=== PATIENT | female | born 1960 | race Caucasian/White ===

== ENCOUNTER 2024-06-02 02:02 | Outpatient (RCR) | payer MEDICARE, SELFPAY ==
[2024-06-02] VITALS (9 sets, daily range): BP systolic 121–147; BP diastolic 64–85; PULSE 52–77; RESP 16–19; TEMP 35.7–36.5; O2SAT 96–100
[2024-06-02] MEDS: Acetaminophen 325 MG TAB 650 MG PO (09:13)
[2024-06-02] MEDS: Normal Saline Flush 10 ML SYR IVP ×2 (09:14→14:06)
[2024-06-02] MEDS: diphenhydrAMINE 25 MG CAP PO (09:16)
[2024-06-02] MEDS: methylPREDNISolone SUCC 125 MG VIAL 100 MG IVP (09:16)
[2024-06-02] MEDS: riTUXimab-PVVR 1,000 MG in Normal Saline 150 ML 62.5 MG IVPB (09:39)
== END 2024-06-08 23:59 | disposition home or self-care (01) ==
LOC: INF 02:02
PROVIDERS: Visit Provider Family Medicine
DX: M05.9 Rheumatoid arthritis with rheumatoid factor, unspecified (principal)
CPT/HCPCS: 96365; 96366; 96374; 96375; J2919; Q5119

== ENCOUNTER 2024-06-16 02:49 | Outpatient (RCR) | payer MEDICARE, SELFPAY ==
[2024-06-09 00:31] VITALS: BP 121/64; PULSE 77; RESP 18; TEMP 36.5
[2024-06-16] VITALS (8 sets, daily range): BP systolic 134–168; BP diastolic 73–79; PULSE 57–77; RESP 16–18; TEMP 36.6–37.2; O2SAT 96–98
[2024-06-16] MEDS: Normal Saline Flush 10 ML SYR IVP ×2 (08:59→11:21)
[2024-06-16] MEDS: methylPREDNISolone SUCC 125 MG VIAL 100 MG IVP (08:59)
[2024-06-16] MEDS: diphenhydrAMINE 25 MG CAP PO (08:59)
[2024-06-16] MEDS: Acetaminophen 325 MG TAB 650 MG PO (08:59)
[2024-06-16] MEDS: riTUXimab-PVVR 1,000 MG in Normal Saline 150 ML 62.5 MG IVPB (09:23)
== END 2024-07-09 23:59 | disposition home or self-care (01) ==
LOC: INF 02:49
PROVIDERS: Visit Provider Family Medicine
DX: M06.9 Rheumatoid arthritis, unspecified (principal)
CPT/HCPCS: 96365; 96366; J2919; Q5119